=== PATIENT | female | born 1955 | race Caucasian/White ===

== ENCOUNTER 2018-04-25 22:46 | Emergency (ER) | payer OTHER ==
[~2018-04-25] VITALS: Ht 162.6 cm; Wt 81.6 kg
[~2018-04-25 22:46] MED LIST: CIPRO500 MG PO; OXYC1TAB9 PO; PROCARDIA90 MG/BLIS PO; SEPTRA 80/400 T1 TAB; SURFAK240 M1 PO; ZOLOFT50 MG PO
[2018-04-25] MEDS ORDERED: NEURONTIN300 MG (23:24)
[2018-04-25] MEDS ORDERED: SYNTHROID50 MCG (23:24)
[2018-04-26] MEDS ORDERED: MEDROL8 MG PO (04:54)
[2018-04-26] MEDS ORDERED: NORFLEX100MG PO (04:54)
== END 2018-04-26 04:47 ==
LOC: ER 22:46
DX: G51.0 Bell's palsy (principal)

== ENCOUNTER 2020-10-09 06:00 | Day surgery (SDC) | payer OTHER ==
[~2020-10-09 06:00] MED LIST changes: +AVAPRO150 MG PO; +HYDROCHLOROTHIA25 MG PO; +MEDROL8 MG PO; +NEURONTIN300 MG; +NORFLEX100MG PO; +SYNTHROID50 MCG
[2020-10-09] MEDS ORDERED: DICLOFENAC POTA50 MG PO (14:30)
[2020-10-09] MEDS ORDERED: DUI500 PO (14:30)
[2020-10-09] MEDS ORDERED: PERCOCET 5-3251 EACH PO (14:30)
== END 2020-10-09 18:00 | disposition home or self-care (01) ==
LOC: CIR.AMB 06:00
PROVIDERS: ATTEND Orthopaedic Surgery
DX: M75.122 Complete rotator cuff tear or rupture of left shoulder, not specified as traumatic (principal); Z20.822 Contact with and (suspected) exposure to COVID-19

== ENCOUNTER 2021-11-13 10:59 | Emergency (ER) | payer OTHER ==
[~2021-11-13] VITALS: Ht 162.6 cm; Wt 79.4 kg
[~2021-11-13 10:59] MED LIST changes: +DICLOFENAC POTA50 MG PO; +DUI500 PO; +PERCOCET 5-3251 EACH PO
== END 2021-11-13 13:59 | disposition home or self-care (01) ==
LOC: ER 10:59
DX: S06.0X9A Concussion with loss of consciousness of unspecified duration, initial encounter (principal); W18.30XA Fall on same level, unspecified, initial encounter; Y93.F1 Activity, caregiving, bathing; Y92.012 Bathroom of single-family (private) house as the place of occurrence of the external cause; Z88.0 Allergy status to penicillin; E03.9 Hypothyroidism, unspecified; I10 Essential (primary) hypertension; M48.061 Spinal stenosis, lumbar region without neurogenic claudication

== ENCOUNTER 2022-06-26 07:09 | Emergency (ER) | payer OTHER ==
[~2022-06-26] VITALS: Ht 162.6 cm; Wt 78.0 kg
== END 2022-06-26 12:02 ==
LOC: ER 07:09
DX: S29.8XXA Other specified injuries of thorax, initial encounter (principal); V49.9XXA Car occupant (driver) (passenger) injured in unspecified traffic accident, initial encounter; Y93.89 Activity, other specified; Y92.89 Other specified places as the place of occurrence of the external cause; Y99.9 Unspecified external cause status; M62.838 Other muscle spasm; E03.9 Hypothyroidism, unspecified; I10 Essential (primary) hypertension; Z88.8 Allergy status to other drugs, medicaments and biological substances

== ENCOUNTER 2022-12-21 12:41 | Inpatient (IN) | payer OTHER ==
[~2022-12-21] VITALS: Ht 162.6 cm
[2022-12-27] MEDS ORDERED: PERCOCET 5-3251 EACH PO (07:54)
[2022-12-27] MEDS ORDERED: AMOX-CLAV 875-1 EACH PO (07:55)
[2022-12-27] MEDS ORDERED: MEDROLPACK PO (07:55)
[2022-12-27] MEDS ORDERED: NEURONTIN800 MG PO (07:56)
[2022-12-27] MEDS ORDERED: COLACE100 MG PO (07:56)
== END 2022-12-29 17:20 | DRG 455 ==
LOC: O/R 12-27 05:58 → SURH 12-27 10:30
PROVIDERS: ADMIT Orthopaedic Surgery Orthopaedic Surgery of the Spine; ATTEND Orthopaedic Surgery Orthopaedic Surgery of the Spine
PROC: 0SG0071 Fusion of Lumbar Vertebral Joint with Autologous Tissue Substitute, Posterior Approach, Posterior Column, Open Approach (ICD-10-PCS; 2022-12-27)
PROC: XRGD0R7 Fusion of Lumbosacral Joint using Custom-Made Anatomically Designed Interbody Fusion Device, Open Approach, New Technology Group 7 (ICD-10-PCS; 2022-12-27)
PROC: 0SG3071 Fusion of Lumbosacral Joint with Autologous Tissue Substitute, Posterior Approach, Posterior Column, Open Approach (ICD-10-PCS; 2022-12-27)
PROC: 0ST20ZZ Resection of Lumbar Vertebral Disc, Open Approach (ICD-10-PCS; 2022-12-27)
PROC: 0ST40ZZ Resection of Lumbosacral Disc, Open Approach (ICD-10-PCS; 2022-12-27)
PROC: 0QB30ZZ Excision of Left Pelvic Bone, Open Approach (ICD-10-PCS; 2022-12-27)
PROC: 07DR0ZZ Extraction of Iliac Bone Marrow, Open Approach (ICD-10-PCS; 2022-12-27)
PROC: 4A12X4Z Monitoring of Cardiac Electrical Activity, External Approach (ICD-10-PCS; 2022-12-27)
PROC: XRGB0R7 Fusion of Lumbar Vertebral Joint using Custom-Made Anatomically Designed Interbody Fusion Device, Open Approach, New Technology Group 7 (ICD-10-PCS; principal; 2022-12-27 19:15)
DX: M43.16 Spondylolisthesis, lumbar region (principal); M48.062 Spinal stenosis, lumbar region with neurogenic claudication; M48.07 Spinal stenosis, lumbosacral region; M43.17 Spondylolisthesis, lumbosacral region; I10 Essential (primary) hypertension; E03.9 Hypothyroidism, unspecified

== ENCOUNTER → 2024-10-18 | Emergency (ER) | payer OTHER ==
[~2024-10-18] VITALS: Ht 172.7 cm; Wt 78.9 kg
[~2024-10-18] MED LIST changes: +AMOX-CLAV 875-1 EACH PO; +COLACE100 MG PO; +LACTULOSE 20 G/30 ML BLIST.PACK ONE; +LACTULOSE 20 G/30 ML BLIST.PACK PO ONE; +MEDROLPACK PO; +MINERAL OIL 133 ML ENEMA RECTAL ONE; +NEURONTIN800 MG PO
[2024-10-18 15:18] VITALS: BP 137/84; O2SAT 97
[2024-10-18 18:52] LABS: BASO % 0.4 % (0.1-1.2); EOS # 0.27 (0.04-0.54); EOS % 3.4 % (0.7-7.0); HEMATOCRIT 38.5 % (34.1-44.9); HEMOGLOBIN 13.2 g/dL (11.2-15.7); LYMPH # 2.69 (1.18-3.74); LYMPH % 33.8 % (19.3-53.1); MEAN CORPUSCULAR HEMOGLOBIN 30.7 pg (25.6-32.2); MONO # 0.43 (0.24-0.82); MONO % 5.4 % (4.7-12.5); NEUT # 4.54 (1.56-6.13); NEUT % 56.9 % (34.0-71.1); PLATELET COUNT 212 K/uL (163-369); RED CELL DISTRIBUTION WIDTH 13.2 % (11.6-14.4)
[2024-10-18 19:22] LABS: PROTHROMBIN TIME 10.9 SECONDS (9.0-11.5)
[2024-10-18 19:26] LABS: CALCIUM 9.6 mg/dL (8.5-10.1); CREATININE SERUM 0.74 mg/dL (0.55-1.02); GFR 78.28; POTASSIUM 3.94 mEq/L (3.5-5.1)
== END | disposition home or self-care (01) ==
LOC: ER 14:30
PROVIDERS: Emergency Medicine
DX: K59.00 Constipation, unspecified (principal); Z88.8 Allergy status to other drugs, medicaments and biological substances; K57.32 Diverticulitis of large intestine without perforation or abscess without bleeding
CPT/HCPCS: 36415; 74177; 99284; Q9965